=== PATIENT | female | born 1995 | race Caucasian/White ===

== ENCOUNTER 2018-12-30 10:59 | Inpatient (IN) | payer BC ==
[~2018-12-30] VITALS: Ht 162.6 cm; Wt 100.3 kg
[2018-12-30 11:52] LABS: BASOPHILS 0.3 % (0-2); EOSINOPHILS 1.5 % (0-7); HEMATOCRIT 38.8 % (36.0-48.0); IMMATURE GRANULOCYTES 0.2 % (0-5); LYMPHOCYTES 19.8 % (15-50); MCH 27.3 pg (26.0-34.0); MCHC 36.1 g/dL (31.0-37.0); MCV 75.6 fL (80.0-100.0); MEAN PLATELET VOLUME 11.3 fL (7.4-10.4); MONOCYTES 7.3 % (2-11); NEUTROPHILS 70.9 % (40-80); PLATELET COUNT 247 10x3/uL (130-400); RBC 5.13 10x6/uL (4.00-5.40); RDW 15.8 % (11.5-14.5); WBC 8.9 10x3/uL (4.8-10.8)
[2018-12-30 11:55] LABS: HCG SERUM NEGATIVE (NEGATIVE)
[2018-12-30 12:02] LABS: ALBUMIN 3.5 g/dL (3.4-5.0); ALKALINE PHOSPHATASE 165 U/L (46-116); ALT (SGPT) 16 U/L (10-68); AMYLASE - SERUM 21 U/L (25-115); CALC OSMOLALITY 285 mosm/kg (275-300); CALCIUM 8.8 mg/dL (8.5-10.1); CARBON DIOXIDE 19.9 mmol/L (21.0-32.0); CHLORIDE - SERUM 99 mmol/L (98-107); CREATININE - SERUM 0.7 mg/dL (0.6-1.3); GLUCOSE 365 mg/dL (74-106); LIPASE 75 U/L (73-393); PROTEIN - SERUM 7.1 g/dL (6.4-8.2); SODIUM 137 mmol/L (136-145); UREA NITROGEN 4 mg/dL (7-18); eGFR NON AFRICAN AMERICAN > 90 mL/min (90-120)
[2018-12-30 12:58] LABS: APPEARANCE CLEAR (CLEAR); BILIRUBIN NEGATIVE (NEGATIVE); COLOR STRAW (YELLOW); GLUCOSE NEGATIVE (NEGATIVE); KETONE NEGATIVE (NEGATIVE); NITRITE NEGATIVE (NEGATIVE); PROTEIN NEGATIVE (NEGATIVE); UROBILINOGEN NORMAL (NORMAL)
[2018-12-30 12:59] VITALS: BP 129/81
--- NOTE | 2018-12-30 13:00 | NUR ---
ASSUMED CARE OF PT. A/OX3. RESP EVEN/UNLABORED. DENIES PAIN AT THIS TIME.
[2018-12-30 14:30] VITALS: BP 140/74
--- NOTE | 2018-12-30 15:09 | NUR ---
REPORT TO COSME HENLEY BY SBAR FORMAT
--- NOTE | 2018-12-30 15:15 | NUR ---
FSBS= 240MG/DL COSME RALPH NOTIFIED UPON TRANSPORT TO ROOM
--- NOTE | 2018-12-30 15:25 | NUR ---
TRANSPORTED TO ROOM #1208 VIA W/C [facility]
--- NOTE | 2018-12-30 15:37 | NUR ---
1525-RECEIVED TO ROOM VIA WHEELCHAIR, GLASSES ON. UP TO RESTROOM TO VOID IMMEDIATELY. WILL MONITR.
[2018-12-30 16:02] VITALS: BP 120/76; BMI 38.0
--- NOTE | 2018-12-30 16:41 | MORECARE ---
CASE MANAGEMENT DISCHARGE SUMMARY PATIENT: KHOA MORSE UNIT: [id number] ADM DATE: 12/30/18 AGE: 23 : [birth year] SEX: F ROOM/BED: D.1208 AUTHOR: JAZMIN ESCOBAR PHYSICIAN: REFERRING PHYSICIAN: UZAIR SPEARS MD DATE OF SERVICE: 12/30/18 Discharge Plan Patient Name: KHOA MORSE [facility] [facility] 1995 Planned Disposition: Home Anticipated Discharge Date: 01/01/19 Discharge Date: Expected LOS: 2 Initial Reviewer: [email or web address] Initial Review Date: 12/30/2018 Generated: 12/30/18 5:40 pm Patient Name: KHOA MORSE Page [phone] at 1641 All edits/amendments must be made on the electronic document DICTATION DATE: 12/30/18 1640 CHEMICAL ENGINEERING INTERN: ANAHI 12/30/18 1640 RPT#: [id number] DC DATE: STATUS: ADM IN [facility] [address] [place] [address] END OF REPORT
--- NOTE | 2018-12-30 16:48 | MORECARE ---
CASE MANAGEMENT DISCHARGE SUMMARY PATIENT: KHOA MORSE UNIT: [id number] ADM DATE: 12/30/18 AGE: 23 : [birth year] SEX: F ROOM/BED: D.1208 AUTHOR: LUZ,DOC PHYSICIAN: REFERRING PHYSICIAN: UZAIR SPEARS MD DATE OF SERVICE: 12/30/18 Discharge Plan Patient Name: KHOA MORSE Facility: [facility]:[place] : 1995 Planned Disposition: Home Anticipated Discharge Date: 01/01/19 Discharge Date: Expected LOS: 2 Initial Reviewer: [email or web address] Initial Review Date: 12/30/2018 Generated: 12/30/18 5:48 pm DCP- Discharge Planning Updated by [email or web address]: Paola Hamilton on 12/30/18 3:[address] DC PLAN: Return home with her sig other. ANTICIPATED DC NEEDS: diabetic supplies - newly diagnosed diabetic. CM met with patient to complete initial dc planning assessment. CM educated patient on the CM role and verbal consent given by patient to complete assessment. CM verified patient's address, phone number, and emergency contact phone numbers. Patient lives at home with her significant other. At discharge patient plans to return home and feels this is a safe discharge. Patient reports she has never been told she has diabetes. Educated her on the need for diabetic supplies. She verbalized understanding. CM discussed availability of home health, rehab services, and medical equipment. Patient denied known discharge needs at this time. Patient reports her sig other will transport her home at time of discharge. CM will continue to follow and will assist as needed with dc plans/needs. Paola Hamilton RN, [facility] DCPIA - Discharge Planning Initial Assessment Updated by [email or web address]: Paola Hamilton on 12/30/18 4:41 pm * Is the patient Alert and Oriented? Yes * PCP No PCP, Dr. Miguel office information given. * Pharm[place] [facility] [place] * Preadmission Environment Home with Family * ADLs Independent * Equipment None * List name and contact numbers for known caregivers / representatives who currently or will assist patient after discharge: Julian Gallo - sig other - [phone] * Verbal permission to speak to the caregivers and representatives has been obtained from the patient. Yes * Community resources currently utilized None * Additional services required to return to the preadmission environment? No * Can the patient safely return to the preadmission environment? Yes * Has this patient been hospitalized within the prior 30 days at any hospital? No Last DP export: 12/30/18 3:41 p Patient Name: KHOA MORSE Page [phone] at 1648 All edits/amendments must be made on the electronic document DICTATION DATE: 12/30/181647 EXECUTIVE SALES ASSISTANT: ANAHI 12/30/181647 RPT#: [id number] DC DATE: STATUS: ADM IN [facility] [address] [place] [address] END OF REPORT
--- NOTE | 2018-12-30 20:00 | NUR ---
EVENING ROUNDS COMPLETED. VSS, AAOX3, NO S/S OF DISTRESS. PT DENIES ANY PAIN OR DISCOMFORT. FSBS 172. INSULIN WILL BE GIVEN PER SLIDING SCALE. PT NPO PER PROVIDERS ORDERS. PT DENIES ANY FURTHER NEEDS AT THIS TIME. WILL CPOC. CL WITHIN REACH.
--- NOTE | 2018-12-30 23:02 | NUR ---
CAESAR MATA ORDERED FOR 40MEQ NK/KCL TO BE CONTINUED, HE ALSO DC'D NPO. PT IN NOW ON CLEAR LIQUID DIET. WATER PROVIDED TO PT AT THIS TIME. KCL INFUSING @ 125MLS/HR PER PROVIDERS ORDERS.
[2018-12-31] VITALS: BP 108/50
[2018-12-31 00:22] LABS: CALCIUM 8.1 mg/dL (8.5-10.1); CARBON DIOXIDE 24.2 mmol/L (21.0-32.0); CHLORIDE - SERUM 107 mmol/L (98-107); CREATININE - SERUM 0.6 mg/dL (0.6-1.3); POTASSIUM - SERUM 3.4 mmol/L (3.5-5.1); SODIUM 141 mmol/L (136-145); eGFR NON AFRICAN AMERICAN > 90 mL/min (90-120)
[2018-12-31 00:28] LABS: CALC OSMOLALITY 278 mosm/kg (275-300); GLUCOSE 139 mg/dL (74-106); UREA NITROGEN 2 mg/dL (7-18)
[2018-12-31 03:54] VITALS: BP 118/56
[2018-12-31 07:02] VITALS: BP 93/41
[2018-12-31 07:06] LABS: BASOPHILS 0.2 % (0-2); EOSINOPHILS 1.7 % (0-7); HEMATOCRIT 34.9 % (36.0-48.0); HEMOGLOBIN 12.3 g/dL (12-16); IMMATURE GRANULOCYTES 0.2 % (0-5); MCH 26.8 pg (26.0-34.0); MCHC 35.2 g/dL (31.0-37.0); MEAN PLATELET VOLUME 10.8 fL (7.4-10.4); MONOCYTES 9.8 % (2-11); NEUTROPHILS 63.1 % (40-80); PLATELET COUNT 205 10x3/uL (130-400); RBC 4.59 10x6/uL (4.00-5.40)
[2018-12-31 07:08] LABS: WBC 6.4 10x3/uL (4.8-10.8)
--- NOTE | 2018-12-31 07:15 | NUR ---
PT RESTING IN BED, SHIFT ASSESSMENT PERFORMED. VSS AND WNL. PT COMPLAINS OF PAIN TO PIV IN RIGHT WRIST. PIV REMOVED WITH CATHETER TIP INTACT. 22G PIV INSERTED X1 ATTEMPT TO LEFT HAND. PT TOLERATED WELL. DENIES ANY NEEDS AT THIS TIME, WILL CONT TO FOLLOW POC
[2018-12-31 07:41] LABS: CARBON DIOXIDE 21.1 mmol/L (21.0-32.0); CHLORIDE - SERUM 107 mmol/L (98-107); CREATININE - SERUM 0.6 mg/dL (0.6-1.3); MAGNESIUM - SERUM 1.5 mg/dL (1.8-2.4); PHOSPHOROUS 2.9 mg/dL (2.5-4.9); POTASSIUM - SERUM 3.4 mmol/L (3.5-5.1); SODIUM 140 mmol/L (136-145); eGFR NON AFRICAN AMERICAN > 90 mL/min (90-120)
[2018-12-31 07:42] LABS: CALC OSMOLALITY 285 mosm/kg (275-300); GLUCOSE 272 mg/dL (74-106); UREA NITROGEN 3 mg/dL (7-18)
--- NOTE | 2018-12-31 08:30 | NUR ---
NURSE DEMONSTRATED FSBS TECHNIQUE. PT CORRECTLY PERFORMS PROCEDURE WITH MINIMAL QUEING REQUIRED. NURSE THEN DEMONSTRATED DRAWING UP INSULIN AND ADMINISTRATION OF INSULIN. PT CORRECTLY PERFORMS PROCEDURE WITH MINIMAL QUEING AND ADMINISTERED INSULIN INTO RLQ. PT CONFIDENT IN CHECKING FSBS AND INSULIN ADMINISTRATION AT HOME. WILL CONT TO ALLOW PT TO PRACTICE FSBS AND INSULIN ADMINISTRATION UNDER NURSING SUPERVISION DURING STAY. PT REQUESTING MORE INFORMATION ON DMII. EDUCATION MATERIAL GIVEN TO PT.
--- NOTE | 2018-12-31 09:24 | MORECARE ---
CASE MANAGEMENT DISCHARGE SUMMARY PATIENT: KHOA MORSE UNIT: [id number] ADM DATE: 12/30/18 AGE: 23 : 97 SEX: F ROOM/BED: D.1208 AUTHOR: LUZ,DOC PHYSICIAN: REFERRING PHYSICIAN: UZAIR SPEARS MD DATE OF SERVICE: 12/31/18 Discharge Plan Patient Name: KHOA MORSE Facility: [facility]:[place] : 1995 Planned Disposition: Home Anticipated Discharge Date: 01/01/19 Discharge Date: Expected LOS: 2 Initial Reviewer: [email or web address] Initial Review Date: 12/30/2018 Generated: 12/31/18 10:24 am Comments DCP- Discharge Planning Updated by [email or web address]: Paola Hamilton on 12/31/18 8:[address] DC PLAN: Return home with sig other. DC NEEDS: Diabetes testing supplies prescription. PCP - Dr. Miguel office number given to patient. CM discussed the need for diabetes testing supplies being given to her by prescription at [facility]. Discussed availability of Diabetes testing supplies being over the counter at [facility] for under 20 dollars for everything except syringes (if insulin required at [facility]). CM also gave her the name and office number and encouraged her to call Dr. Miguel office to see if they would accept her as a patient. CM verbalized understanding and denied further dc needs. Paola Hamilton RN, [facility] DCP- Discharge Planning Updated by [email or web address]: Paola Hamilton on 12/30/18 3:[address] DC PLAN: Return home with her sig other. ANTICIPATED DC NEEDS: diabetic supplies - newly diagnosed diabetic. CM met with patient to complete initial dc planning assessment. CM educated patient on the CM role and verbal consent given by patient to complete assessment. CM verified patient's address, phone number, and emergency contact phone numbers. Patient lives at home with her significant other. At discharge patient plans to return home and feels this is a safe discharge. Patient reports she has never been told she has diabetes. Educated her on the need for diabetic supplies. She verbalized understanding. CM discussed availability of home health, rehab services, and medical equipment. Patient denied known discharge needs at this time. Patient reports her sig other will transport her home at time of discharge. CM will continue to follow and will assist as needed with dc plans/needs. Paola Hamilton RN, [facility] DCPIA - Discharge Planning Initial Assessment Updated by [email or web address]: Paola Hamilton on 12/30/18 4:41 pm * Is the patient Alert and Oriented? Yes * PCP No PCP, Dr. Miguel office information given. * Pharmacy [facility] [place] * Preadmission Environment Home with Family * ADLs Independent * Equipment None * List name and contact numbers for known caregivers / representatives who currently or will assist patient after discharge: Julian Gallo - [facility] - [phone] * Verbal permission to speak to the caregivers and representatives has been obtained from the patient. Yes * Community resources currently utilized None * Additional services required to return to the preadmission environment? No * Can the patient safely return to the preadmission environment? Yes * Has this patient been hospitalized within the prior 30 days at any hospital? No Last DP export: 12/30/18 3:48 p Patient Name: KHOA MORSE Page [phone] at 0924 All edits/amendments must be made on the electronic document DICTATION DATE: 12/31/18922 WIND ENERGY PROJECT MANAGER: ANAHI 12/31/18922 RPT#: [id number] DC DATE: STATUS: ADM IN [facility] [address] [place] [address] END OF REPORT
--- NOTE | 2018-12-31 09:47 | NUR ---
NURSE PROVIEDED TEACHING ON ADMINISTRATION OF LANTUS PEN. PT ABLE TO ADMINISTER LANTUS INJECTION WITH MINIMAL NURSE CUEING. PT CONFIDENT IN ABILITY TO PERFORM INJECTION.
--- NOTE | 2018-12-31 12:30 | NUR ---
PT CHECKED FSBS, ISREAL UP HER INSULIN, AND ADMINISTERED HER INSULIN WITH ONLY NURSE STANDBY. NO CUEING PROVIDED. PT STATES SHE IS COMFORTABLE PERFORMING THIS PROCEDURE. FAMILY AT BEDSIDE, DENIES ANY NEEDS AT THIS TIME, WILL CONT TO FOLLOW POC
[2018-12-31 14:44] VITALS: Ht 162.6 cm; Wt 100.3 kg
--- NOTE | 2018-12-31 15:26 | NUR ---
HERE AND ASKED NURSE TO PUT IN A DIABETIC DIET, CHANGE LANTUS FROM 10U QDAY TO 20U QDAY AND SL PT PIV.
--- NOTE | 2018-12-31 16:59 | NUR ---
PT PERFORMED FSBS, PULLED UP HER INSULIN, AND ADMINSITERED HER INSULIN WITH NURSE SUPERVISION. PT PERFORMED PROCEDURE BY HERSELF WITH NO CUEING. DENIES ANY OTHER NEEDS AT THIS TIME, WILL CONT TO FOLLOW POC
[2018-12-31 17:25] VITALS: BP 118/72
[2019-01-01 04:50] VITALS: BP 115/72
[2019-01-01 06:59] LABS: BASOPHILS 0.2 % (0-2); EOSINOPHILS 1.5 % (0-7); HEMATOCRIT 35.8 % (36.0-48.0); HEMOGLOBIN 12.5 g/dL (12-16); IMMATURE GRANULOCYTES 0.2 % (0-5); MCH 26.7 pg (26.0-34.0); MCHC 34.9 g/dL (31.0-37.0); MCV 76.5 fL (80.0-100.0); MEAN PLATELET VOLUME 11.4 fL (7.4-10.4); MONOCYTES 9.4 % (2-11); NEUTROPHILS 62.7 % (40-80); PLATELET COUNT 208 10x3/uL (130-400); RBC 4.68 10x6/uL (4.00-5.40); RDW 15.9 % (11.5-14.5); WBC 5.9 10x3/uL (4.8-10.8)
[2019-01-01 07:18] LABS: CALC OSMOLALITY 288 mosm/kg (275-300); CALCIUM 8.6 mg/dL (8.5-10.1); CARBON DIOXIDE 24.7 mmol/L (21.0-32.0); CHLORIDE - SERUM 106 mmol/L (98-107); CREATININE - SERUM 0.6 mg/dL (0.6-1.3); GLUCOSE 279 mg/dL (74-106); MAGNESIUM - SERUM 1.7 mg/dL (1.8-2.4); PHOSPHOROUS 4.3 mg/dL (2.5-4.9); POTASSIUM - SERUM 3.3 mmol/L (3.5-5.1); SODIUM 141 mmol/L (136-145); UREA NITROGEN 6 mg/dL (7-18); eGFR NON AFRICAN AMERICAN > 90 mL/min (90-120)
--- NOTE | 2019-01-01 07:30 | NUR ---
PT RESTING IN BED, SHIFT ASSESSMENT PERFORMED. VSS AND WNL. PT CHECKED HER BLOOD SUGAR, ISREAL UP HER INSULIN, AND ADMINISTERED HER HUMULIN AND LANTUS WITH ONLY NURSING SUPERVISION. DENIES ANY NEEDS AT THIS TIME, WILL CONT TO FOLLOW POC
[2019-01-01 08:04] VITALS: BP 119/61
[2019-01-01] MEDS ORDERED: LANTUS SOL100 UNIT/1 SC (09:22)
[2019-01-01] MEDS ORDERED: GLUCOPHAGE500 MG PO (09:22)
--- NOTE | 2019-01-01 13:33 | NUR ---
DISCHARGE INSTRUCTIONS REVIEWED WITH PT AND ALL QUESTIONS ANSWERED. PIV REMOVED WITH CATHETER TIP INTACT. TELEMETRY REMOVED AND GIVEN TO RESIN SHAVER, JUDY. ASSISTED PT TO FRONT OF HOSPITAL VIA WHEELCHAIR WHERE SHE LEFT WITH FAMILY.
--- NOTE | 2019-01-01 19:45 | MORECARE ---
CASE MANAGEMENT DISCHARGE SUMMARY PATIENT: KHOA MORSE UNIT: [id number] ADM DATE: 12/30/18 AGE: 23 : 97 SEX: F ROOM/BED: D.1208 AUTHOR: LUZ,DOC PHYSICIAN: REFERRING PHYSICIAN: UZAIR SPEARS MD DATE OF SERVICE: 01/01/19 Discharge Plan Patient Name: KHOA MORSE Facility: [facility]:[place] : 1995 Planned Disposition: Home Anticipated Discharge Date: 01/01/19 Discharge Date: 01/01/2019 Expected LOS: 2 Initial Reviewer: [email or web address] Initial Review Date: 12/30/2018 Generated: 01/01/19 8:45 pm DCP- Discharge Planning Updated by [email or web address]: Paola Hamilton on 12/31/18 8:[address] DC PLAN: Return home with sig other. DC NEEDS: Diabetes testing supplies prescription. PCP - Dr. Miguel office number given to patient. CM discussed the need for diabetes testing supplies being given to her by prescription at [facility]. Discussed availability of Diabetes testing supplies being over the counter at [facility] for under 20 dollars for everything except syringes (if insulin required at [facility]). CM also gave her the name and office number and encouraged her to call Dr. Miguel office to see if they would accept her as a patient. CM verbalized understanding and denied further dc needs. Paola Hamilton RN, [facility] DCP- Discharge Planning Updated by [email or web address]: Paola Hamilton on 12/30/18 3:[address] DC PLAN: Return home with her sig other. ANTICIPATED DC NEEDS: diabetic supplies - newly diagnosed diabetic. CM met with patient to complete initial dc planning assessment. CM educated patient on the CM role and verbal consent given by patient to complete assessment. CM verified patient's address, phone number, and emergency contact phone numbers. Patient lives at home with her significant other. At discharge patient plans to return home and feels this is a safe discharge. Patient reports she has never been told she has diabetes. Educated her on the need for diabetic supplies. She verbalized understanding. CM discussed availability of home health, rehab services, and medical equipment. Patient denied known discharge needs at this time. Patient reports her sig other will transport her home at time of discharge. CM will continue to follow and will assist as needed with dc plans/needs. Paola Hamilton RN, [facility] DCPIA - Discharge Planning Initial Assessment Updated by [email or web address]: Paola Hamilton on 12/30/18 4:41 pm * Is the patient Alert and Oriented? Yes * PCP No PCP, Dr. Miguel office information given. * Pharmacy [facility] [place] * Preadmission Environment Home with Family * ADLs Independent * Equipment None * List name and contact numbers for known caregivers / representatives who currently or will assist patient after discharge: Julian Gallo - [facility] - [phone] * Verbal permission to speak to the caregivers and representatives has been obtained from the patient. Yes * Community resources currently utilized None * Additional services required to return to the preadmission environment? No * Can the patient safely return to the preadmission environment? Yes * Has this patient been hospitalized within the prior 30 days at any hospital? No Last DP export: 12/31/18 8:24 a Patient Name: KHOA MORSE Page [phone] at 1945 All edits/amendments must be made on the electronic document DICTATION DATE: 01/01/191944 RADIOLOGY TRANSCRIPTIONIST: ANAHI 01/01/191944 RPT#: [id number] DC DATE:01/01/19 STATUS: DIS IN [facility] [address] [place] [address] END OF REPORT
== END 2019-01-01 13:37 | disposition home or self-care (01) | DRG 638 ==
LOC: D.ER 10:59 → D.M3 14:25
PROVIDERS: Family Medicine; ADMIT Internal Medicine Nephrology; ATTEND Internal Medicine Nephrology
DX: E11.65 Type 2 diabetes mellitus with hyperglycemia (principal); N17.9 Acute kidney failure, unspecified; D50.9 Iron deficiency anemia, unspecified; J45.909 Unspecified asthma, uncomplicated; E66.01 Morbid (severe) obesity due to excess calories; Z68.37 Body mass index [BMI] 37.0-37.9, adult; E87.6 Hypokalemia